=== PATIENT | female | born 1985 | race Caucasian/White ===

== ENCOUNTER 2017-04-08 13:12 | Emergency (ER) | payer OTHER ==
[~2017-04-08] VITALS: Ht 154.9 cm; Wt 68.0 kg
[~2017-04-08 13:12] MED LIST: DEPO-PROVE150 MG/1 M IM; GABAPENTIN400 MG PO; LIDODERM700 MG TP; NORCO 5-325 TA1 EACH PO; TRAMADOL HCL50 MG PO; VALACYCLOVIR500 MG PO
[2017-04-08] MEDS ORDERED: METHADONE HCL10 MG PO (13:32)
[2017-04-08] MEDS ORDERED: METHOCARBAMOL750 MG PO (13:35)
--- NOTE | 2017-04-08 15:38 | NUR ---
I WAS CALLED TO ER FOR PT. SHE IS HAVING POST OP COMPLICATIONS, AND THE STAFF WAS CONCERNED ABOUT HER 2 YOUNG CHILDREN WITH HER. I CHECKED ON HER AND SHE HAD JUST CONTACTED A FRIEND WHO ARRIVED TO TAKE THE CHILDREN. SHE IS A VET, SUFFERING WITH PTSD WITH A SERVICE DOG. SHE IS ALSO HOMELESS. I NOTICED A CONTACT ON HER FACE SHEET, WHICH SHE LISTED "MOTHER". I KNOW THIS PERSON IS , WE DISCUSSED. SHE WAS HER FOSTER MOTHER, AND HER FOSTER DAD SHE ASKED ME TO CONTACT WHICH I DID. HE CAME RIGHT DOWN, SHE WAS VERY PLEASED, AND I PRAYED WITH HER. SHE FEELS VERY ALONE, THAT SOMEHOW GOD HAS FORGOTTEN HER. WE DISCUSSED THIS AND STAFF GAVE HER MEDS TO CONTROL HER PAIN AND SHE BEGAN TO RELAX. SHE THANKED ME. JESSIE HICKS DID A GREAT JOB WITH HER COMPASSION AND CARE OF PT. PT ALSO ASKED ME TO UPDATE HER CONTACT INFO WITH ADMITTING WHICH I DID.
[2017-04-08] MEDS ORDERED: CLONIDINE HCL0.1 MG PO (15:53)
[2017-04-08] MEDS ORDERED: DOLOPHINE HCL5 MG PO (15:54)
[2017-04-08] MEDS ORDERED: OMEPRAZOLE20 MG PO (17:17)
[2017-04-08] MEDS ORDERED: ONDANSETRON ODT8 MG PO (17:44)
[2017-04-10] MEDS ORDERED: BUSPIRONE HCL10 MG PO (14:25)
== END 2017-04-08 17:50 | disposition home or self-care (01) ==
LOC: ED 13:12
PROC: 0T9B70Z Drainage of Bladder with Drainage Device, Via Natural or Artificial Opening (ICD-10-PCS; principal; 2017-04-08)
DX: M62.830 Muscle spasm of back (principal); E86.0 Dehydration; F43.10 Post-traumatic stress disorder, unspecified; F17.200 Nicotine dependence, unspecified, uncomplicated; Z79.899 Other long term (current) drug therapy
CPT/HCPCS: 51701; 80053; 81001; 84703; 85025; 96361; 96372; 96374; 96375; 99283; J1170; J1200; J2060; J2550; J7030

== ENCOUNTER → 2017-04-10 | Emergency (ER) | payer OTHER ==
[~2017-04-10] VITALS: Ht 154.9 cm; Wt 68.0 kg
[~2017-04-10] MED LIST changes: +BUSPIRONE HCL10 MG PO; +CLONIDINE HCL0.1 MG PO; +DOLOPHINE HCL5 MG PO; +METHADONE HCL10 MG PO; +METHOCARBAMOL750 MG PO; +OMEPRAZOLE20 MG PO; +ONDANSETRON ODT8 MG PO
== END ==
LOC: ED 14:10
DX: R11.2 Nausea with vomiting, unspecified (principal); F32.9 Major depressive disorder, single episode, unspecified; F41.9 Anxiety disorder, unspecified; F43.10 Post-traumatic stress disorder, unspecified; F17.200 Nicotine dependence, unspecified, uncomplicated; Z79.899 Other long term (current) drug therapy
CPT/HCPCS: 96361; 96374; 96375; 96376; 99283; J1170; J2060; J2405; J7030

== ENCOUNTER 2019-03-03 11:28 | Emergency (ER) | payer OTHER ==
[~2019-03-03] VITALS: Ht 154.9 cm; Wt 71.7 kg
--- OUTSIDE RECORDS SUMMARY | ~2019-03-03 | XMS | Clinical Summary ---
Demographics + + + | Address | [address] | | | [place] [address] | + + + | Home Phone | | + + + | Preferred Language | Unknown | + + + | Marital Status | Unknown | + + + | Judaism Affiliation | Unknown | + + + | Race | Unknown | + + + | Ethnic Group | Unknown | + + + Author + + + | Author | [facility] | + + + | Organization | [facility] [employer] | + + + | Address | Unknown | + + + | Phone | Unavailable | + + + Support + + +---------+ + | Name | Relationship | Address | Phone | + + +---------+ + | Blayne Ha | ECON | Unknown | | + + +---------+ + | Blayne Ha | ECON | Unknown | | + + +---------+ + Care Team Providers + +------+ + | Care Occasional Caregiver Name | Role | Phone | + +------+ + | Renate Galeano | PP | Unavailable | + +------+ + Allergies No Known Allergies Current Medications + + +-------+---------+------+------+-------+ | Prescription | Sig. | Disp. | Refills | Star | End | Statu | | | | | | t | Date | s | | | | | | Date | | | + + +-------+---------+------+------+-------+ | acetaminophen | Take 1,000 mg by | | | | | Activ | | (TYLENOL) 500 MG | mouth every 6 (six) | | | | | e | | tablet | hours as needed for | | | | | | | | Pain. | | | | | | + + +-------+---------+------+------+-------+ Active Problems + + + | Problem | Noted Date | + + + | Radiculopathy of lumbar region | 12/31/2017 | + + + | Chronic bilateral low back pain with bilateral sciatica | 12/31/2017 | + + + | DDD (degenerative disc disease), lumbar | 12/31/2017 | + + + | Radicular pain of both lower extremities | 12/31/2017 | + + + | Osteoarthritis of spine with radiculopathy, lumbar region | 12/31/2017 | + + + Social History + +-------+ +--------+------+ | Tobacco Use | Types | Packs/Day | Years | Date | | | | | Used | | + +-------+ +--------+------+ | Never Assessed | | | | | + +-------+ +--------+------+ + + + | Sex Assigned at | Date Recorded | | | | + + + | Not on file | | + + + Last Filed Vital Signs + + + + | Vital Sign | Reading | Time Taken | + + + + | Blood Pressure | 125/73 | 12/31/2017 10:52 AM PDT | + + + + | Pulse | 53 | 12/31/2017 10:52 AM PDT | + + + + | Temperature | - | - | + + + + | Respiratory Rate | - | - | + + + + | Oxygen Saturation | - | - | + + + + | Inhaled Oxygen | - | - | | Concentration | | | + + + + | Weight | 61.2 kg (135 lb) | 12/31/2017 10:52 AM PDT | + + + + | Height | 154.9 cm (5' 1") | 12/31/2017 10:52 AM PDT | + + + + | Body Mass Index | 25.51 | 12/31/2017 10:52 AM PDT | + + + + Plan of Treatment + + + + + | Health Maintenance | Due Date | Last Done | Comments | + + + + + | Vaccine: | | 12/29/1999 | | | Dtap/Tdap/Td (2 - | 5 | | | | Tdap) | | | | + + + + + | Cervical Cancer | | | | | Screening (Pap) | 6 | | | + + + + + | Vaccine: Influenza | Completed | 06/28/2018, 07/13/2017 | | + + + + + Results Not on filefrom Last 3 Months Insurance + +--------+ +------+ + + | Payer | Benefi | Subscriber | Type | Phone | Address | | | t Plan | ID | | | | | | / | | | | | | | Group | | | | | + +--------+ +------+ + + | VETERANS | VETERA | [id number] | | [phone] FEE SERVICES [id number] | | ADMINISTRATION | [place] | | | [phone] | [id number] | | | [address] | | | | [address] [place], [place] | | | [place]AT[place] | | | | [phone] | | | ON | | | | | + +--------+ +------+ + + | MEDICAID | EASTER | [id number] | | | [address] | | | N | | | | [place], [place] | | | [place] | | | | [phone] | | | [employer] | | | | | + +--------+ +------+ + + + +--------+ +--------+ + + | Guarantor Name | Accoun | Relation to | Date | Phone | Billing Address | | | t Type | Patient | of | | | | | | | | | | + +--------+ +--------+ + + | FELA REY | Person | Self [birth year] | Home: | [address] | | | al/Fam | | 1985 | +- | [address] [place], | | | [place] | | | [address] | [place] [address] | + +--------+ +--------+ + + | KAILEY REY | Vetera | Self | [birth year] | Home: | [address] | | | ns | | 1985 | +- | [address] [place], | | | Admini | | | [address] | [place] [address] | | | strati | | | | | | | on | | | | | + +--------+ +--------+ + +
--- OUTSIDE RECORDS SUMMARY | ~2019-03-03 | XMS | Clinical Summary ---
Demographics + + + | Address | [address] | | | [place] [address] | + + + | Home Phone | | + + + | Preferred Language | Unknown | + + + | Marital Status | Unknown | + + + | Denominational Affiliation | Unknown | + + + | Race | Unknown | + + + | Ethnic Group | Unknown | + + + Author + + + | Author | [facility] | + + + | Organization | [facility] [employer] [facility] | + + + | Address [...] Team Providers + +------+ + | Care Investment Banking Manager Name | Role | Phone | + [...] + + | VETERANS | VETERA | [id number] | | [phone] FEE SERVICES [address] | | ADMINISTRATION | [place] | | | [phone] | [phone] | | | [address]I | | | | [address] [place], [place] | | | [place] | | | | [address] | | | ON | | | | | + +--------+ +------+ + + | MEDICAID | EASTER | [id number] | | | [address] | | | N | | | | [place], [place] | | | [place] | | | | [phone] | | | CLINICAL TRANSPLANT COORDINATOR | | | | | + +--------+ [...] [place] | | | [address] | [place] [address] | + +--------+ +--------+ + + | KAILEY REY | Vetera | Self | [birth year] | Home: | [address] | | | ns | | 1985 | +- | [address] [place], | | | Admini | | | [address] | [place] [address] | | | strati | | | | | | | on | | | | | + +--------+ +--------+ + +
--- OUTSIDE RECORDS SUMMARY | ~2019-03-03 | XMS | Clinical Summary ---
Demographics + + + | Address | [address] | | | [place] [address] | + + + | Home Phone | | + + + | Preferred Language | Unknown | + + + | Marital Status | Single | + + + | Pentecostalism Affiliation | 1013 | + + + | Race | Unknown | + + + | Ethnic Group | Unknown | + + + Author + + + | Author | [facility] | | | [facility] | + + + | Organization | [facility] | | | [facility] | + + + | Address | Unknown | + + + | Phone | Unavailable | + + + Support + + +---------+ + | Name | Relationship | Address | Phone | + + +---------+ + | Kenia Peoples | ECON | Unknown | | + + +---------+ + | Gareth Ha | ECON | Unknown | | + + +---------+ + | Valentin Ha | ECON | Unknown | | + + +---------+ + Care Team Providers + +------+ + | Care Surveyor Oil Well Directional Name | Role | Phone | + +------+ + | Taya Pérez MD | PP | | + +------+ + Allergies + + + + + + | Active Allergy | Reactions | Severity | Noted | Comments | | | | | Date | | + + + + + + | Adhesive & Tape | Other (See Comments) | Medium | 03/02/20 | Blisters where | | | | | 17 | tape was from spinal | | | | | | cord stimulator | | | | | | trial | + + + + + + | Fluoxetine | Other (See Comments) | Medium | 12/19/19 | "seratonin | | | | | 17 | syndrome" | + + + + + + Medications + + + +---------+------+------+-------+ | Medication | Sig | Dispensed | Refills | Star | End | Statu | | | | | | t | Date | s | | | | | | Date | | | + + + +---------+------+------+-------+ | methocarbamol | Take 1-2 tablets by | 90 | 3 | 06/2 | | Activ | | (METHOCARBAMOL) 750 | mouth every 6 hours | tablet | | 8/20 | | e | | mg tablet | as needed for Muscle | | | 17 | | | | | spasms. | | | | | | + + + +---------+------+------+-------+ | BISACODYL 5 mg EC | Take 1 tablet by | | 0 | 06/1 | | Activ | | tablet | mouth Daily. | | | 9/20 | | e | | | | | | 17 | | | + + + +---------+------+------+-------+ | gabapentin | Take 3 capsules by | 90 | 2 | 07/3 | | Activ | | (NEURONTIN) 300 mg | mouth 3 times daily | capsule | | 1/20 | | e | | capsule | as needed. | | | 17 | | | + + + +---------+------+------+-------+ | | Take 1-2 tablets by | 90 | 0 | 08/2 | | Activ | | HYDROcodone-acetamin | mouth every 4 hours | tablet | | 2/20 | | e | | ophen (NORCO) | as needed for Pain. | | | 17 | | | | 7.5-325 mg per | | | | | | | | tabletIndications: | | | | | | | | S/P spinal surgery | | | | | | | + + + +---------+------+------+-------+ | methadone 10 mg | Take 1 tablet by | 90 | 0 | 08/2 | | Activ | | tabletIndications: | mouth every 8 hours | tablet | | 2/20 | | e | | S/P spinal surgery | as needed for Pain. 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 | 01/21/2016 | + + + | Class I, BMI 30-34.9 | 01/21/2016 | + + + | DDD (degenerative disc disease), lumbar | 04/20/2015 | + + + | Facet arthritis of lumbar region | 04/20/2015 | + + + | Lumbar radiculopathy | 02/28/2015 | + + + | Anxiety | | + + + | Depression | | + + + | Herpes zoster | | + + + + + | Overview: Recurrent in the left buttocks and left elbow | + + Family History + + +------+ + | Medical History | Relation | Name | Comments | + + +------+ + | Arthritis | Mother | | | + + +------+ + | Alcohol abuse | Other | | | + + +------+ + | Mental illness | Other | | | + + +------+ + + +------+ + + | Relation | Name | Status | Comments | + +------+ + + | Brother | | Alive | | + +------+ + + | Brother | | Alive | | + +------+ + + | Father | | | | | | | (Age | | | | | 40) | | + +------+ + + | Maternal Grandfather | | | | + +------+ + + | Maternal Grandmother | | | | + +------+ + + | Mother | | | | + +------+ + + | Other | | | | + +------+ + + | Other | | | | + +------+ + + | Paternal Grandfather | | | | + +------+ + + | Paternal Grandmother | | | | + +------+ + + Social History + + + +--------+ + | Tobacco Use | Types | Packs/Day | Years | Date | | | | | Used | | + + + +--------+ + | Current Some Day | Cigarettes | 0.5 | 8 | Started: 04/28/2008 | | Smoker | | | | | + + + +--------+ + + +------+---+---+ | Smokeless Tobacco: | Chew | | | | Never Used | | | | + +------+---+---+ + + +---------+ + | Alcohol Use | Drinks/We | oz/Week | Comments | | | ek | | | + + +---------+ + | Yes | 3 | 1.8 | | | | Glasses | | | | | of wine | | | | | 0 | | | | | Standard | | | | | drinks or | | | | | | | | | | equivalen | | | | | t | | | + + +---------+ + + + + | Sex Assigned at | Date Recorded | | | | + + + | Not on file | | + + + + + + + | Job Start Date | Occupation | Industry | + + + + | Not on file | Not on file | Not on file | + + + + + + + + | Travel History | Travel Start | Travel End | + + + + + + | No recent travel history available. | + + Last Filed Vital Signs + + + + | Vital Sign | Reading | Time Taken | + + + + | Blood Pressure | 120/74 | 12/10/20171701 PST | + + + + | Pulse | 112 | 12/10/20171701 PST | + + + + | Temperature | 37.1 C (98.8 F) | 12/10/20171701 PST | + + + + | Respiratory Rate | 16 | 12/10/20171701 PST | + + + + | Oxygen Saturation | 100% | 12/10/20171701 PST | + + + + | Inhaled Oxygen | - | - | | Concentration | | | + + + + | Weight | 61.2 kg (135 lb) | 12/10/20171701 PST | + + + + | Height | 154.9 cm (5' 1") | 12/10/20171701 PST | + + + + | Body Mass Index | 25.51 | 12/10/20171701 PST | + + + + Plan of Treatment + + + + + | Health Maintenance | Due Date | Last Done | Comments | + + + + + | Cervical Cancer | | | | | Screening (Pap) | 6 | | | + + + + + | Vaccine: | | 01/26/2017, 12/29/1999, | | | Dtap/Tdap/Td (7 - | 7 | 09/05/1991, Additional history | | | Td) | | exists | | + + + + + | Vaccine: Influenza | Completed | 06/28/2018, 07/13/2017, | | | | | 12/03/2016, Additional history | | | | | exists | | + + + + + | Vaccine: | Completed | 06/28/2018 | | | Pneumococcal 19-64 | | | | | (PPSV23 only) Medium | | | | | Risk | | | | + + + + + Implants + +--------+--------+ +--------+--------+--------+ | Implanted | Type | Area | Manufacture | Device | Shelf | Model | | | | | r | | Expira | / | | | | | | Identi | tion | Serial | | | | | | fier | Date | / Lot | + +--------+--------+ +--------+--------+--------+ | Bone Chips 15cc - | Bone | Fixture Relamper | RTI | | 09/24/ | [id number] | | [id number]: Qty: 1 | | ior: | BIOLOGICS | | 2020 | | | on 01/23/2016 by Yordan, | | Spine | INC - RBIO | | | /[id number] | | Tristin Pope DO | | Lumbar | | | | 6-045 | | | | | | | | / | + +--------+--------+ +--------+--------+--------+ | Imp Spn Spcr Capstone [id number] | Generi | Fixture Relamper | [employer] - | | 09/23/ | [id number] | | - [id number]: Qty: 1 | c | ior: | MEDT | | 2022 | 1 / | | on 01/23/2016 by Yordan, | | Spine | | | | /[id number] | | Tristin Pope DO | | Lumbar | | | | 082 | + +--------+--------+ +--------+--------+--------+ | Fidel Sext Solera [id number] - | Generi | Fixture Relamper | [place] | | | [id number] | | [id number]: Qty: 2 on | c | ior: | MATTEK - DIV | | | 5040 / | | 01/23/2016 by Tristin Farr | | Spine | [employer] | | | / | | DO Toshia | | Lumbar | - SFDK | | | | + +--------+--------+ +--------+--------+--------+ | Accessory | Neurol | | | | 11/04/ | [id number] | | Kit-12/21/2016Implanted: Qty: | ogical | | | | 2020 | | | 1 on 12/21/2016 by | | | | | | /[id number] | | Brian Mcgrath MD | Stimul | | | | | 1 | | | ator | | | | | /[id number] | | | | | | | | 72 | + +--------+--------+ +--------+--------+--------+ | Lead 1Implanted: Qty: 1 on | Neurol | | | | 11/28/ | D26 | | 12/21/2016 by Ramila, | opheliaical | | | | 2020 | 0 | | Brian Sanchez MD | | | | | | /[id number] | | | Stimul | | | | | 60 | | | ator | | | | | /[id number] | | | | | | | | -[id number] | + +--------+--------+ +--------+--------+--------+ | Lead 2-12/21/2016Implanted: | Neurol | | | | 11/28/ | D26 | | Qty: 1 on 12/21/2016 by | ogical | | | | 2020 | 0 | | Brian Mcgrath MD | | | | | | /D2 | | | Stimul | | | | | 60 | | | ator | | | | | /[id number] | | | | | | | | [id number] | + +--------+--------+ +--------+--------+--------+ | Stim Nrv Lead Comp 1x8 60cm - | Neurol | Right: | [employer] - | | 02/08/ | [id number] | | [id number]: Qty: 1 | ogical | Spine | MEDT | | 2020 | 0 / | | on 03/31/2017 by Yordan, | | | | | | /[id number] | | Tristin Pope DO | Stimul | Lumbar | | | | [id number] | | | ator | | | | | | + +--------+--------+ +--------+--------+--------+ | Stim Nrv Lead Comp 1x8 60cm - | Neurol | Right: | [employer] - | | 07/30/ | [id number] | | [id number]: Qty: 1 | ogical | Spine | MEDT | | 2019 | 0 / | | on 03/31/2017 by Yordan, | | | | | | /[id number] | | Tristin Pope DO | Stimul | Lumbar | | | | [id number] | | | ator | | | | | | + +--------+--------+ +--------+--------+--------+ | Stim Nrv Surescan Mri - | Neurol | Right: | [employer] - | | 02/28/ | [id number] | | [id number]: Qty: 1 | ogical | Spine | MEDT | | 2018 | /[id number] | | on 03/31/2017 by Yordan, | | | | | | [id number] | | Tristin Pope DO | Stimul | Lumbar | | | | / | | | ator | | | | | | + +--------+--------+ +--------+--------+--------+ | Screw Juan Francisco Solera 6.5x55mm - | Screw | Fixture Relamper | [place] | | | [id number] | | [id number]: Qty: 2 on | | ior: | DANEK - DIV | | | [id number] | | 01/23/2016 by Tristin Farr | | Spine | [employer] | | | / / | | DO Toshia | | Lumbar | - SFDK | | | | + +--------+--------+ +--------+--------+--------+ | Screw Juan Francisco Solera 6.5x50mm - | Screw | Fixture Relamper | [place] | | | [id number] | | [id number]: Qty: 2 on | | ior: | DANEK - DIV | | | [id number] | | 01/23/2016 by Tristin Farr | | Spine | [employer] | | | / / | | A DO | | Lumbar | - SFDK | | | | + +--------+--------+ +--------+--------+--------+ | Set Scrw Ns G5 Brk Off Ti | Screw | Fixture Relamper | [place] | | | [id number] | | 4.75 - [id number]: | | ior: | DANEK - DIV | | | 0 / / | | Qty: 4 on 01/23/2016 by | | Spine | [employer] | | | | | Tristin Farr DO | | Lumbar | - SFDK | | | | + +--------+--------+ +--------+--------+--------+ | Graft Infuse Bone Kit Xxs - | | Fixture Relamper | [place] | | 09/02/ | [id number] | | [id number]: Qty: 1 on | | ior: | DANEK - DIV | | 2015 | 0 / | | 01/23/2016 by Tristin Farr | | Spine | [employer] | | | /[id number] | | DO Toshia | | Lumbar | - SFDK | | | [id number] | + +--------+--------+ +--------+--------+--------+ Results Not on filefrom Last 3 Months Insurance + +--------+ +--------+ +---------+--------+ | Payer | Benefi | Subscriber | Effect | Phone | Address | Type | | | t Plan | ID | mary ann | | | | | | / | | Dates | | | | | | Group | | | | | | + +--------+ +--------+ +---------+--------+ | [employer] | MODA | [id number] | | [phone] | | Medica | | MEDICAID HMO | HEALTH | | [id number]-Pr | 1 | | id | | | MDCD | | esent | | | | | | [place]MO [place] | | | | | | + +--------+ +--------+ +---------+--------+ + +--------+ +--------+ + + | Guarantor Name | Accoun | Relation to | Date | Phone | Billing Address | | | t Type | Patient | of | | | | | | | | | | + +--------+ +--------+ + + | Kailey Lema | Person | Self | [birth year] | [address] | | | al/Fam | | 1986 | [phone] | [place] | | | [place] | | | [address] ([place]) | [phone] | + +--------+ +--------+ + + Advance Directives Patient has advance care planning documents, and code status on file. For more information, please contact:[facility] [place] [address] + + + + + | Code Status | Date | Date | Comments | | | Activated | Inactivated | | + + + + + | Full Code | 03/31/2017 | 03/31/2017 | | | | 16:33 | 19:52 | | + + + + + + + + +---+ | | | | | + + + +---+ | Full Code | 01/23/2016 | 01/30/2016 | | | | 19:44 | 17:46 | | + + + +---+
--- OUTSIDE RECORDS SUMMARY | ~2019-03-03 | XMS | Clinical Summary ---
Demographics + + + | Address | [address] | | | [place] [address] | + + + | Home Phone | | + + + | Preferred Language | Unknown | + + + | Marital Status | Single | + + + | Christianity Affiliation | 1013 | + + + | Race | Unknown | + + + | Ethnic Group | Unknown | + + + Author + + + | Author | [facility] | | | and [facility] | + + + | Organization | [facility] | | | and [facility] [...] Team Providers + +------+ + | Care Transformation Analyst Name | Role | Phone | + [...] Bone Chips 15cc - | Bone | Senior Painter | RTI | | 09/24/ | [id number] | | [id number]: Qty: 1 | | ior: | BIOLOGICS | | 2020 | | | on 01/23/2016 by Yordan, | | Spine | INC - RBIO | | | /[id number] | | Tristin Pope DO | | Lumbar | | | | 6-045 | | | | | | | | / | + +--------+--------+ +--------+--------+--------+ | Imp Spn Spcr Capstone [id number] | Generi | Senior Painter | [employer] - | | 09/23/ | [id number] | | - [id number]: Qty: 1 | c | ior: | MEDT | | 2022 | 1 / | | on 01/23/2016 by Yordan, | | Spine | | | | /[id number] | | Tristin Pope DO | | Lumbar | | | | 082 | + +--------+--------+ +--------+--------+--------+ | Fidel Sext Solera [id number] - | Generi | Senior Painter | [place] | | | [id number] | | [id number]: Qty: 2 on | c | ior: | MATTEK - DIV | | | 5040 / | | 01/23/2016 by Tristin Farr | | Spine | [employer] | | | / | | DO Toshia | | Lumbar | - SFDK | | | | + +--------+--------+ +--------+--------+--------+ | Accessory | Neurol | | | | 11/04/ | [id number] | | Kit-12/21/2016Implanted: Qty: | ogical | | | | 2020 | | | 1 on 12/21/2016 by | | | | | | /[id number] | | Brian Mcgrath MD | Stimul [...] | | 02/08/ | [id number] | | [id number]: Qty: 1 | ogical | Spine | [...] | | 07/30/ | [id number] | | [id number]: Qty: 1 | ogical | Spine | [...] | [employer] - | | 02/28/ | [id number] | | [id number]: Qty: 1 | ogical | Spine | MEDT | | 2018 | /[id number] | | on 03/31/2017 by Yordan, | | | | | | [id number] | | Tristin Pope DO | Stimul | Lumbar | | | | / | | | ator | | | | | | + +--------+--------+ +--------+--------+--------+ | Screw Juan Francisco Solera 6.5x55mm - | Screw | Senior Painter | [place] | | | [id number] | | [id number]: Qty: 2 on | | ior: | DANEK - DIV | | | [id number] | | 01/23/2016 by Tristin Farr | | Spine | [employer] | | | / / | | DO Toshia | | Lumbar | - SFDK | | | | + +--------+--------+ +--------+--------+--------+ | Screw Juan Francisco Solera 6.5x50mm - | Screw | Senior Painter | [place] | | | [id number] | | [id number]: Qty: 2 on | | ior: | DANEK - DIV | | | [id number] | | 01/23/2016 by Tristin Farr | | Spine | [employer] | | | / / | | A DO | | Lumbar | - SFDK | | | | + +--------+--------+ +--------+--------+--------+ | Set Scrw Ns G5 Brk Off Ti | Screw | Senior Painter | [place] | | | [id number] | | 4.75 - [id number]: | | ior: | DANEK - DIV | | | 0 / / | | Qty: 4 on 01/23/2016 by | | Spine | [employer] | | | | | Tristin Farr DO | | Lumbar | - [facility] | | | | + +--------+--------+ +--------+--------+--------+ | Graft Infuse Bone Kit Xxs - | | Senior Painter | SOFAMOR | | 09/02/ | [id number] | | [id number]: Qty: 1 on | | ior: | [...] | [employer] | MOD[facility] | [id number] | | [phone] | | Medica | [...] Person | Self | [birth year] | [phone] | | | al/Fam | | 1986 | [phone] | JONAH LARON | | | ronny | | | 7 ([place]) | [id number] | + +--------+ +--------+ + + Advance Directives Patient has advance care planning documents, and code status on file. For more information, please contact:[facility] [place] [address] + + + + + | Code [...]
--- OUTSIDE RECORDS SUMMARY | 2019-03-03 11:32 | XMS ---
PreManage Notification: [facility] Events No recent Security Events currently on file CRITERIA MET - Group Notification CARE PROVIDERS JODI MIRZA Physician Applier Current PHONE: Unknown Christoph Miranda- Collection Teller Current [employer] PHONE: [phone] Peng Tenorio MD Current PHONE: Unknown DON WEEMS Primary Care 04/03/2017-Current PHONE: [phone] Radha Rasmussen Primary Care Current PHONE: Unknown RADHA VAUGHN MD Current PHONE: Unknown Alexus has no Care Guidelines for this patient. [facility] VISIT COUNT (12 MO.) 1 TG Wilk[facility] TOTAL 1 NOTE: Visits indicate total known visits. ED/UCC VISIT TRACKING (12 MO.) 03/03/2019 11:[address] [facility] [place] TYPE: Emergency COMPLAINT: - BLISTERS ALL OVER BODY INPATIENT VISIT TRACKING (12 MO.) No inpatient visits to display in this time frame [id number]
[2019-03-03] MEDS ORDERED: PREDNISONE20 MG PO (14:37)
[2019-03-03] MEDS ORDERED: FAMCICLOVIR500 MG PO (14:38)
== END 2019-03-03 15:34 | disposition home or self-care (01) ==
LOC: ED 11:28
DX: L51.9 Erythema multiforme, unspecified (principal); F17.200 Nicotine dependence, unspecified, uncomplicated
CPT/HCPCS: 71046; 80053; 84703; 85025; 96361; 96374; 96375; 99283-25; J1885; J2405; J2930; J7030; Q0163